=== PATIENT | male | born 1955 | race African-American/Black ===

== ENCOUNTER 2017-11-03 09:07 | Outpatient (CLI) | payer BC ==
--- NOTE | 2017-11-03 14:53 | PET ---
PET CT FROM SKULL TO MID THIGH: INDICATION: PET CT evaluation. 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 Evaluate response to thera py. COMPARISON: Prior PET CT evaluation dated 07/07/17. TECHNIQUE: PET CT evaluation was performed from the skull base through the mid thighs. CT evaluation was perfor med for attenuation correction purposes only. The patient received 11.93 mCi of F18-FDG IV. FINDINGS: BIODISTRIBUTION: Acceptable. HEAD AND NECK: No abnormal FDG localization. CHEST: The solid focus of FDG hypermetabolic uptake within the left upper lobe on the prior examination with a peak SUV value of 14.6 on the comparison study dated 07/07/17 has significantly diminished in radio tracer avidity. The peak uptake associated with this lesion is 1.44 with a mean value of 1.21. The lesion is now centrally cavitated. No new focus of FDG uptake is evident. ABDOMEN AND PELVIS: No abnormal hypermetabolic mass or lymphadenopathy is evident. No free fluid is evident. SKIN AND OSSEOUS STRUCTURES: No hypermetabolic skin or osseous lesions identified. IMPRESSION: Abnormal PET CT evaluation. 1. The solitary hypermetabolic nodule within the left upper lobe has undergone central cavitation wi th decreased fluorodeoxyglucose avidity. No hypermetabolic uptake is now associated with the central ly cavitated left upper lobe pulmonary nodule. Findings are consistent with response to therapy. 2. No scintigraphic evidence to suggest metastatic disease. POS: [facility]
== END 2017-11-03 09:08 | disposition home or self-care (01) ==
LOC: PET 09:07
PROVIDERS: ATTEND Radiology Radiation Oncology
DX: C34.12 Malignant neoplasm of upper lobe, left bronchus or lung (principal)
CPT/HCPCS: 78815; A9552